=== PATIENT | male | born 1950 | race Caucasian/White ===

== ENCOUNTER 2020-12-09 05:13 | Inpatient (IN) | payer MEDICARE ==
[~2020-12-09] VITALS: Ht 182.9 cm; Wt 81.6 kg
[~2020-12-09 05:13] MED LIST: AMLO5TAB4 PO; AMOX1TAB58 PO; ASPI-630 PO; ATOR20TA58 PO; CHOL10004 PO; CYAN100031 PO; CYAN25002 SL; FOLI0.4T5 PO; LISI10TA16 PO; METF500T16 PO; METO-239 PO; MULT-245 PO; OLAN5TAB67 PO; PYRI50TA6 PO; SERT25TA PO
--- NOTE | 2020-12-09 05:55 | PHYS DOC ---
Past Medical History Past Medical History: CVA, High Cholesterol, Hypertension, Seizure Additional Past Medical Histor: MENTAL HEALTH ISSUES Past Surgical History: Other Additional Past Surgical Histo: UNKNOWN Smoking Status: Unknown if ever smoked Alcohol Use: None General Adult EDM: Chief Complaint: FATIGUE HPI: HPI: Patient is a 70 year old male who states he is on no prescription medications presents for evaluation of nausea vomiting diarrhea and generalized weakness. Patient states 1 day history of nausea vomiting and diarrhea. Earlier this morning patient fell to the ground but due to weakness he could not get himself up off the ground. Patient denies any head injury. Neighbors called 911 at 2 AM due to hearing someone yelling out calling for help. EMS states it took them approximately an hour and a half to locate the patient. On exam patient is alert without focal weakness. He denies any chest pain or shortness of breath. Patient is not covid 19 vacinated. Review of Systems: Review of Systems: Constitutional: Denies fever or chills. [] Eyes: Denies change in visual acuity. [] HENT: Denies nasal congestion or sore throat. [] Respiratory: Denies cough or shortness of breath. [] Cardiovascular: Denies chest pain or edema. [] GI: Denies abdominal pain, positive nausea, vomiting, and diarrhea. [] : Denies dysuria. [] Musculoskeletal: Denies back pain or joint pain. [] Integument: Denies rash. [] Neurologic: Denies headache, focal weakness or sensory changes. []positive generalized weakness Endocrine: Denies polyuria or polydipsia. [] Lymphatic: Denies swollen glands. [] Psychiatric: Denies depression or anxiety. [] Heart Score: C/O Chest Pain: N/A Risk Factors: Risk Factors: DM, Current or recent (<one month) smoker, HTN, HLP, family history of CAD, obesity. Risk Scores: Score 0 - 3: 2.5% MACE over next 6 weeks - Discharge Home Score 4 - 6: 20.3% MACE over next 6 weeks - Admit for Clinical Observation Score 7 - 10: 72.7% MACE over next 6 weeks - Early Invasive Strategies Current Medications: Current Medications Medications (Trade) Dose Ordered Sig/Keely Start Time Stop Time Status Last Admin Dose Admin Ondansetron HCl (Zofran) 4 mg 1X ONCE 12/09/20 06:00 12/09/20 06:01 UNV Sodium Chloride 1,000 ml @ 1,000 mls/hr 1X ONCE 12/09/20 06:00 12/09/20 06:59 UNV Allergies: Allergies: Allergies Coded Allergies Type Severity Reaction Last Updated Verified No Known Drug Allergies 08/16/20 No Physical Exam: PE: General: alert, no acute distress. Skin: warm, dry and intact, no erythema, no rash. HENT: bilateral external ears normal, oropharynx moist, nose normal. Head:: Normocephalic, atraumatic. Neck: Trachea midline. Eyes: EOMI, Normal conjunctiva, No drainage CARDIOVASCULAR: Regular rate and rhythm RESPIRATORY: No respiratory distress Back: Full range of motion. MUSCULOSKELETAL: Full range of motion of bilateral upper and lower extremities. GASTROINTESTINAL: Abdomen soft without rebound or guarding. NEUROLOGICAL: Alert . No neurological deficits observed Psychiatric: Cooperative. Normal judgment EKG: EKG: [] Performed at 0520 Rate 93 Normal sinus rhythm No ST elevation No ST depression No acute NM Radiology/Procedures: Radiology/Procedures: [] Course & Med Decision Making: Course & Med Decision Making Pertinent Labs and Imaging studies reviewed. (See chart for details) [] Dragon Disclaimer: Dragon Disclaimer: This electronic medical record was generated, in whole or in part, using a voice recognition dictation system. Departure Departure Impression: Primary Impression: Generalized weakness Additional Impression: Fall Disposition: ADMITTED INPATIENT Referrals: UNKNOWN PCP NAME (PCP) CHENTE DANIELSON DO Dec 09, 2020 05:55
[2020-12-09 05:59] LABS: CALCIUM 9.2 mg/dL (8.5-10.1); GFR 73.9; POTASSIUM 3.2 mmol/L (3.5-5.1)
[2020-12-09] MEDS ORDERED: IV NORMAL SALINE 1000ML BAG 1,000 ML IV ONE (06:00)
[2020-12-09] MEDS ORDERED: ONDANSETRON PF 4 MG/2 ML VIAL. IVP ONE (06:00)
[2020-12-09 06:04] LABS: ALBUMIN 3.7 g/dL (3.4-5.0); ALBUMIN/GLOBULIN RATIO 0.9 (1.0-1.7)
[2020-12-09 06:06] LABS: BASO # 0.1 x10^3/uL (0.0-0.2); BASO % 1 % (0-3); EOS % 0 % (0-3); HEMATOCRIT 43.4 % (39.0-53.0); HEMOGLOBIN 15.2 g/dL (13.0-17.5); LYMPH # 1.8 x10^3/uL (1.0-4.8); LYMPH % 16 % (24-48); MEAN CORPUSCULAR HEMOGLOBIN 30 pg (25-35); MEAN CORPUSCULAR HGB CONC 35 g/dL (31-37); MEAN CORPUSCULAR VOLUME 85 fL (79-100); MONO % 9 % (0-9); NEUT # 8.1 x10^3/uL (1.8-7.7); NEUT % 74 % (31-73); PLATELET COUNT 259 x10^3/uL (140-400); RED CELL DISTRIBUTION WIDTH 14.5 % (11.5-14.5)
[2020-12-09] MEDS ORDERED: ONDANSETRON PF 4 MG/2 ML VIAL. IVP PRN (06:15)
[2020-12-09 06:41] LABS: INFLUENZA A PATIENT NEGATIVE (NEGATIVE); INFLUENZA B PATIENT NEGATIVE (NEGATIVE)
--- NOTE | 2020-12-09 07:05 | RAD ---
EXAM: CHEST ONE VIEW. HISTORY: Weakness. COMPARISON: None. FINDINGS: A frontal view of the chest is obtained. There are no confluent infiltrates. There is no pneumothorax or pleural effusion. The heart is not en larged. IMPRESSION: 1. No confluent infiltrates. Electronically signed by: Bc Jordan MD (12/09/2020 7:03 AM) [facility]
[2020-12-09 11:00] VITALS: BP 144/80
--- NOTE | 2020-12-09 12:08 | EKG ---
[facility] [address] [place] [address] Test Date: 2020-12-09 Test Time: 05:20:19 Pat Name: TAWANDA CORRALES Department: Room: Gender: M Lead Radiation Therapist: : [id number] Requested By: CHENTE DANIELSON Order Number: [id number] Reading MD: Measurements Intervals [place] Rate: 93 P: 90 VT: 192 QRS: -52 QRSD: 84 T: 29 QT: 418 QTc: 523 Interpretive Statements SINUS RHYTHM ABNORMAL LEFT AXIS DEVIATION QRS(T) CONTOUR ABNORMALITY CONSISTENT WITH INFERIOR INFARCT PROBABLY OLD ABNORMAL ECG RI6.01 No previous ECG available for comparison
[2020-12-09] MEDS: IV NORMAL SALINE 1000ML BAG 1,000 ML IV SCH ×2 (12:23→20:05)
[2020-12-09] MEDS ORDERED: POTASSIUM CHLORIDE 20 MEQ TABLET.ER. PO ONE (12:30)
--- NOTE | 2020-12-09 13:12 | HP ---
ADMIT DATE: 12/09/2020 CHIEF COMPLAINT: Fatigue. HISTORY OF PRESENT ILLNESS: The patient is a pleasant 70-year-old male who was admitted back in October. Apparently, he was taking psilocybin mushrooms (magic mushrooms). He states he lives alone and that he misses his 15-year-old daughter who is with his ex-. He seems to be somewhat of a poor historian. In his record, he carries a diagnosis of mental health issues and previous strokes. He has been very weak for a couple of days now, had some associated nausea, vomiting and diarrhea. He fell to the ground, apparently came in by EMS. His neighbors called the ambulance at 2:00 in the morning as the patient was yelling out for help. I discussed the case with ER physician. We admitted the patient for further evaluation and treatment. PAST MEDICAL HISTORY: Stroke, hypertension, hyperlipidemia, mental health issues, probable drug abuse (he apparently was on mushrooms last time he came). ALLERGIES: None. FAMILY HISTORY: Diabetes. SOCIAL HISTORY: He states he is . He is a 15-year-old child with his who lives in [place]. He states she is rich and they took his money? 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 MEDICATIONS: Reviewed, please refer to the MRAD. REVIEW OF SYSTEMS: GENERAL: No history of weight change, weakness or fevers. SKIN: No bruising, hair changes or rashes. EYES: No blurred, double or loss of vision. NOSE AND THROAT: No history of nosebleeds, hoarseness or sore throat. HEART: No history of palpitations, chest pain or shortness of breath on exertion. LUNGS: Denies cough, hemoptysis, wheezing or shortness of breath. GASTROINTESTINAL: Denies changes in appetite, nausea, vomiting, diarrhea or constipation. GENITOURINARY: No history of frequency, urgency, hesitancy or nocturia. NEUROLOGIC: He complains of weakness. PSYCHIATRIC: No history of panic, anxiety or depression. ENDOCRINE: No history of heat or cold intolerance, polyuria or polydipsia. EXTREMITIES: Denies muscle weakness, joint pain, pain on walking or stiffness. PHYSICAL EXAMINATION: VITALS: Within normal limits and are stable. GENERAL: He is weak. HEENT: Normal cephalic atraumatic, external auditory canals are patent EYES: Extraocular muscles are intact, pupils are equally round and reactive to light and accommodation MUSCULOSKELETAL: Well developed, well nourished, good range of motion. ENDOCRINE: No thyromegaly was palpated. LYMPHATICS: No cervical chain or axillary nodes were noted. HEMATOPOIETIC: No bruising. NECK: Supple, no JVD, no thyromegaly was noted. LUNGS: Clear to auscultation in all lung leos without rhonchi or wheezing. HEART: RRR, S1, S2 present. Peripheral pulses intact, no obvious murmurs were noted. ABDOMEN: Soft, nontender. Positive bowel sounds no organomegaly, normal bowel sounds. EXTREMITIES: Without any cyanosis, clubbing, or edema. Pedal pulses intact, Homans sign is negative. NEUROLOGIC: He twitches and cries at times and is very weak. PSYCHIATRIC: He has odd affect. He is depressed and tearful at times. He shakes his shoulders and shrugs his shoulders at times. SKIN: No ulcerations or rashes, good skin turgor, no jaundice. VASCULAR: Good capillary refill, neurovascular bundle appears to be intact. LABORATORY DATA: Drug screen is pending. Alcohol level is negative. Potassium is low at 3.2. Hematology is normal. COVID testing is negative. Chest x-ray is negative. Troponin was 0.05. ASSESSMENT AND PLAN: Progressive mental status changes. I suspect he might be developing dementia? The patient has been admitted. I have consulted social media marketer for long-term care placement. We will check a drug screen, PT, OT, home meds. DVT prophylaxis. Full code. Replace his potassium. He does have an elevated troponin of 0.05. We will consult Cardiology for a second opinion. Jamee Peña. Prognosis is guarded. JOHNNY/ENMANUEL JIMENEZ: Sophia TID: [id number]
--- NOTE | 2020-12-09 13:16 | NUR ---
DARREN following. Discussed with RN, pt from home alone, room air, regular diet. Rapid COVID-19 negative. Pt discharged with [facility] last admission after declining SNF. DARREN will continue to follow. Addendum: 12/09/20 at 1551 by CHRISTIANE BANKS RN advised of PAT consult. DARREN notified PAT team.
[2020-12-09 15:00] VITALS: BP 163/82
[2020-12-09 18:14] LABS: BILIRUBIN,URINE NEGATIVE (NEG); CLARITY,URINE CLOUDY; COLOR,URINE YELLOW; NITRITE,URINE NEGATIVE (NEG); PROTEIN,URINE NEGATIVE (NEG-TRACE)
[2020-12-09 18:16] LABS: BACTERIA,URINE FEW /HPF (0-FEW); BARBITURATES NEG (NEG); BENZODIAZEPINES NEG (NEG); CANNABINOIDS POS (NEG); COCAINE NEG (NEG); METHADONE NEG (NEG); OPIATES NEG (NEG); PHENCYCLIDINE NEG (NEG); RBC,URINE 0 /HPF (0-2)
[2020-12-09 18:19] LABS: AMPHETAMINE/METHAMPHETAMINE NEG (NEG)
[2020-12-09 19:00] VITALS: BP 138/71
[2020-12-09 22:47] VITALS: BP 157/77
[2020-12-10 02:28] VITALS: BP 149/72
[2020-12-10 07:00] VITALS: BP 157/83
[2020-12-10 07:26] LABS: BASO # 0.1 x10^3/uL (0.0-0.2); BASO % 1 % (0-3); EOS % 0 % (0-3); HEMATOCRIT 36.6 % (39.0-53.0); HEMOGLOBIN 12.8 g/dL (13.0-17.5); LYMPH # 1.7 x10^3/uL (1.0-4.8); LYMPH % 26 % (24-48); MEAN CORPUSCULAR HEMOGLOBIN 30 pg (25-35); MEAN CORPUSCULAR HGB CONC 35 g/dL (31-37); MEAN CORPUSCULAR VOLUME 85 fL (79-100); MONO # 0.7 x10^3/uL (0.0-1.1); MONO % 10 % (0-9); NEUT # 4.1 x10^3/uL (1.8-7.7); NEUT % 62 % (31-73); PLATELET COUNT 199 x10^3/uL (140-400); RED BLOOD COUNT 4.33 x10^6/uL (4.30-5.70); RED CELL DISTRIBUTION WIDTH 14.5 % (11.5-14.5); WHITE BLOOD COUNT 6.5 x10^3/uL (4.0-11.0)
[2020-12-10 07:42] LABS: CALCIUM 8.2 mg/dL (8.5-10.1); CREATININE 0.7 mg/dL (0.7-1.3); GFR 111.5; MAGNESIUM 2.1 mg/dL (1.8-2.4); POTASSIUM 3.4 mmol/L (3.5-5.1)
[2020-12-10] MEDS: SERTRALINE 25 MG TABLET. PO SCH ×2 (10:37→21:20)
[2020-12-10] MEDS: MULTIVITAMIN with MINERAL TABLET. PO SCH (10:37)
[2020-12-10] MEDS: PYRIDOXINE 50 MG TABLET. PO SCH (10:37)
[2020-12-10] MEDS: CYANOCOBALAMIN (VITAMIN B-12) 1,000 MCG TABLET. PO SCH (10:37)
[2020-12-10] MEDS: CHOLECALCIFEROL (VITAMIN D3) 1,000 UNIT TABLET PO SCH (10:37)
[2020-12-10] MEDS: ASPIRIN CHEWABLE 81 MG TABLET. PO SCH (10:37)
[2020-12-10] MEDS: LISINOPRIL 10 MG TABLET PO SCH (10:38)
[2020-12-10] MEDS: FOLIC ACID 1 MG TABLET. PO SCH (10:38)
[2020-12-10 11:00] VITALS: BP 125/71
--- NOTE | 2020-12-10 11:02 | PDOC ---
[facility] PROGRESS NOTE Date of Service DOS: DATE: 12/10/20 TIME: 10:58 Chief Complaint Chief Complaint Nausea Vomiting Diarrhea Generalized weakness Stroke HTN HLD Probable drug abuse Mental health issues History of Present Illness History of Present Illness 12/10/2020: Pt seen and examined. Discussed with RN. Chart reviewed. Pt A&O, NAD. Vitals/I&O Vitals/I&O: Vital Signs Date Time Temp Pulse Resp B/P (MAP) Pulse Ox O2 Delivery O2 Flow Rate FiO2 12/10/20 10:38 74 157/83 12/10/20 07:00 98.3 16 96 Room Air 98.3 I & O 12/09/20 12/09/20 12/10/20 15:00 23:00 07:00 Intake Total 540 ml 780 ml 480 ml Output Total 300 ml 300 ml 400 ml Balance 240 ml 480 ml 80 ml Physical Exam General: Alert, No acute distress Lungs: Clear Labs Labs: Laboratory Tests Test 12/09/20 12:40 12/09/20 17:55 12/10/20 00:30 12/10/20 06:55 Troponin I Quantitative 0.045 ng/mL (0.000-0.055) 0.048 ng/mL (0.000-0.055) 0.048 ng/mL (0.000-0.055) Urine Collection Type Unknown Urine Color Yellow Urine Clarity Cloudy Urine pH 7.0 (<5.0-8.0) Urine Specific Howe 1.020 (1.000-1.030) Urine Protein Negative mg/dL (NEG-TRACE) Urine Glucose (UA) Negative mg/dL (NEG) Urine Ketones (Stick) Negative mg/dL (NEG) Urine Blood Negative (NEG) Urine Nitrite Negative (NEG) Urine Bilirubin Negative (NEG) Urine Urobilinogen Dipstick 1.0 mg/dL (0.2 mg/dL) Urine Leukocyte Esterase Negative (NEG) Urine RBC 0 /HPF (0-2) Urine WBC 1-4 /HPF (0-4) Urine Squamous Epithelial Cells Occ /LPF Urine Bacteria Few /HPF (0-FEW) Urine Mucus Slight /LPF Urine Opiates Screen Neg (NEG) Urine Methadone Screen Neg (NEG) Urine Barbiturates Neg (NEG) Urine Phencyclidine Screen Neg (NEG) Urine Amphetamine/Methamphetamine Neg (NEG) Urine Benzodiazepines Screen Neg (NEG) Urine Cocaine Screen Neg (NEG) Urine Cannabinoids Screen Pos (NEG) Urine Ethyl Alcohol Neg (NEG) White Blood Count 6.5 x10^3/uL (4.0-11.0) Red Blood Count 4.33 x10^6/uL (4.30-5.70) Hemoglobin 12.8 g/dL (13.0-17.5) Hematocrit 36.6 % (39.0-53.0) Mean Corpuscular Volume 85 fL (79-100) Mean Corpuscular Hemoglobin 30 pg (25-35) Mean Corpuscular Hemoglobin Concent 35 g/dL (31-37) Red Cell Distribution Width 14.5 % (11.5-14.5) Platelet Count 199 x10^3/uL (140-400) Neutrophils (%) (Auto) 62 % (31-73) Lymphocytes (%) (Auto) 26 % (24-48) Monocytes (%) (Auto) 10 % (0-9) Eosinophils (%) (Auto) 0 % (0-3) Basophils (%) (Auto) 1 % (0-3) Neutrophils # (Auto) 4.1 x10^3/uL (1.8-7.7) Lymphocytes # (Auto) 1.7 x10^3/uL (1.0-4.8) Monocytes # (Auto) 0.7 x10^3/uL (0.0-1.1) Eosinophils # (Auto) 0.0 x10^3/uL (0.0-0.7) Basophils # (Auto) 0.1 x10^3/uL (0.0-0.2) Sodium Level 141 mmol/L (136-145) Potassium Level 3.4 mmol/L (3.5-5.1) Chloride Level 106 mmol/L (98-107) Carbon Dioxide Level 29 mmol/L (21-32) Anion Gap 6 (6-14) Blood Urea Nitrogen 12 mg/dL (8-26) Creatinine 0.7 mg/dL (0.7-1.3) Estimated GFR (Cockcroft-Gault) 111.5 Glucose Level 116 mg/dL (70-99) Calcium Level 8.2 mg/dL (8.5-10.1) Magnesium Level 2.1 mg/dL (1.8-2.4) Assessment and Plan Assessmemt and Plan Nausea Vomiting Diarrhea Generalized weakness Stroke HTN HLD Probable drug abuse Mental health issues Plan: Cardiac monitoring IV fluids Await home health care social worker input for possible SNU placement PT OT DVT prophylaxis Trend labs Full code Discharge disposition pending Comment Review of Relevant I have reviewed the following items russell (where applicable) has been applied. Medications: Current Medications Medications (Trade) Dose Ordered Sig/Keely Route PRN Reason Start Time Stop Time Status Last Admin Dose Admin Potassium Chloride (Klor-Con) 40 meq 1X ONCE PO 12/09/20 12:30 12/09/20 12:33 DC 12/09/20 15:07 Aspirin (Aspirin Chewable) 81 mg DAILY PO 12/10/20 09:00 12/10/20 10:37 Vitamin D (Vitamin D3) 1,000 unit DAILY PO 12/10/20 09:00 12/10/20 10:37 Lisinopril (Prinivil) 10 mg DAILY PO 12/10/20 09:00 12/10/20 10:38 Pyridoxine HCl (Vitamin B-6) 25 mg DAILY PO 12/10/20 09:00 12/10/20 10:37 Sertraline HCl (Zoloft) 25 mg BID PO 12/10/20 09:00 12/10/20 10:37 Cyanocobalamin (Vitamin B-12) 1,000 mcg DAILY PO 12/10/20 09:00 12/10/20 10:37 Folic Acid (Folic Acid) 0.5 mg DAILY PO 12/10/20 09:00 12/10/20 10:38 Multivitamins (Thera M Plus) 1 tab DAILY PO 12/10/20 09:00 12/10/20 10:37 Amlodipine Besylate (Norvasc) 5 mg DAILY PO 12/10/20 09:00 12/10/20 10:38 Justifications for Admission Other Justification KHANH BONILLA III DO Dec 10, 2020 11:02
[2020-12-10 15:00] VITALS: BP 130/68
--- NOTE | 2020-12-10 15:03 | PDOC2 ---
CONSULT Date of Consult Date of Consult DATE: 12/10/20 TIME: 14:58 Reason for Consult Reason for Consult: Minimally elevated troponin and weakness Referring Physician Referring Physician: Dr. Abreu Identification/Chief Complaint Chief Complaint Weakness, nausea and vomiting Source Source: Chart review, Patient History of Present Illness Reason for Visit: The patient is a 70-year-old male who reported episodes of increasing weakness nausea and vomiting. Apparently he was calling for help the previous evening and neighbors called paramedics. He was brought to the emergency room and initial lab testing included troponin of 0.05 and a potassium of 3.2. EKG showed no acute ischemic changes. A chest x-ray showed no acute changes. He has reported history of a CVA, hypertension, hyperlipidemia and a possible seizure disorder. Sequential troponins have been 0.045, 0.048 and 0.048 again. The patient appears relatively comfortable today. He denies chest discomfort. His nausea has improved. Past Medical History Cardiovascular: HTN, Hyperlipidemia CENTRAL NERVOUS SYSTEM: CVA, Dementia, Seizure Heme/Onc: No pertinent hx Psych: Other Musculoskeletal: Osteoarthritis Endocrine: Diabetes Past Surgical History Past Surgical History: No pertinent history Family History Family History: Family History Unknown Social History ALCOHOL: rare Drugs: Marijuana Lives: Retirement Current Medications Current Medications Current Medications Ondansetron HCl (Zofran) 4 mg 1X ONCE IVP Last administered on 12/09/20at 06:00; Start 12/09/20 at 06:00; Stop 12/09/20 at 06:01; Status DC Sodium Chloride 1,000 ml @ 1,000 mls/hr 1X ONCE IV Last administered on 12/09/20at 06:00; Start 12/09/20 at 06:00; Stop 12/09/20 at 06:59; Status DC Ondansetron HCl (Zofran) 4 mg PRN Q8HRS PRN IVP NAUSEA/VOMITING 1st choice Last administered on 12/09/20at 20:04; Start 12/09/20 at 06:15; Stop 12/10/20 at 06:14; Status DC Sodium Chloride 1,000 ml @ 75 mls/hr [id number] IV Last administered on 12/09/20at 20:05; Start 12/09/20 at 06:15; Stop 12/10/20 at 06:14; Status DC Potassium Chloride (Klor-Con) 40 meq 1X ONCE PO Last administered on 12/09/20 15:07; Start 12/09/20 at 12:30; Stop 12/09/20 at 12:33; Status DC Aspirin (Aspirin Chewable) 81 mg DAILY PO Last administered on 12/10/20 10:37; Start 12/10/20 at 09:00 Atorvastatin Calcium (Lipitor) 20 mg QHS PO ; Start 12/10/20 at 21:00 Vitamin D (Vitamin D3) 1,000 unit DAILY PO Last administered on 12/10/20 10:37; Start 12/10/20 at 09:00 Lisinopril (Prinivil) 10 mg DAILY PO Last administered on 12/10/20 10:38; Start 12/10/20 at 09:00 Pyridoxine HCl (Vitamin B-6) 25 mg DAILY PO Last administered on 12/10/20at 10:37; Start 12/10/20 at 09:00 Sertraline HCl (Zoloft) 25 mg BID PO Last administered on 12/10/20 10:37; Start 12/10/20 at 09:00 Cyanocobalamin (Vitamin B-12) 1,000 mcg DAILY PO Last administered on 12/10/20 10:37; Start 12/10/20 at 09:00 Folic Acid (Folic Acid) 0.5 mg DAILY PO Last administered on 12/10/20 10:38; Start 12/10/20 at 09:00 Multivitamins (Thera M Plus) 1 tab DAILY PO Last administered on 12/10/20 10:37; Start 12/10/20 at 09:00 Amlodipine Besylate (Norvasc) 5 mg DAILY PO Last administered on 12/10/20 10:38; Start 12/10/20 at 09:00 Active Scripts Active Metformin Hcl 500 Mg Tablet 500 Mg PO BIDWMEALS 30 Days Metoprolol Succinate ( Xl ) (Metoprolol Succinate) 25 Mg Tab.er.24h 25 Mg PO DAILY 30 Days Pyridoxine Hcl (Pyridoxine Hcl) 25 Mg Tablet 1 Tab PO DAILY 30 Days B-12 (Cyanocobalamin (Vitamin B-12)) 2,500 Mcg Tab.subl 1 Tab SL DAILY 30 Days Folic Acid 0.4 Mg Tablet 0.4 Mg PO DAILY 30 Days Atorvastatin Calcium 20 Mg Tablet 20 Mg PO QHS 30 Days Reported Multi Vitamin Daily (Multivitamin) 1 Each Tablet 1 Tab PO DAILY 30 Days B-12 (Cyanocobalamin (Vitamin B-12)) 1,000 Mcg Tablet.er 1 Tab PO DAILY 30 Days Vitamin D3 (Vitamin D) 25 Mcg Tablet 25 Mcg PO DAILY 1,000 UNITS = 25 MCG Zoloft (Sertraline Hcl) 25 Mg Tablet 1 Tab PO BID Olanzapine 5 Mg Tablet 5 Mg PO DAILY Aspirin 81 Mg Tab.chew 81 Mg PO DAILY Norvasc (Amlodipine Besylate) 5 Mg Tablet 5 Mg PO DAILY Lisinopril 10 Mg Tablet 10 Mg PO DAILY Allergies Allergies: Coded Allergies: No Known Drug Allergies (Unverified , 08/16/20) ROS General: YES: Fatigue, Malaise Gastrointestinal: Yes Nausea, Yes Vomiting Physical Exam General: No acute distress HEENT: Atraumatic Lungs: Other (Slightly decreased breath sounds) Heart: Regular rate Abdomen: Normal bowel sounds Vitals VITALS Vital Signs Date Time Temp Pulse Resp B/P (MAP) Pulse Ox O2 Delivery O2 Flow Rate FiO2 12/10/20 11:00 98.1 73 18 125/71 (89) 94 Room Air 98.1 Labs Labs Laboratory Tests Test 12/09/20 05:30 12/09/20 06:05 12/09/20 12:40 12/09/20 17:55 White Blood Count 11.0 x10^3/uL (4.0-11.0) Red Blood Count 5.10 x10^6/uL (4.30-5.70) Hemoglobin 15.2 g/dL (13.0-17.5) Hematocrit 43.4 % (39.0-53.0) Mean Corpuscular Volume 85 fL (79-100) Mean Corpuscular Hemoglobin 30 pg (25-35) Mean Corpuscular Hemoglobin Concent 35 g/dL (31-37) Red Cell Distribution Width 14.5 % (11.5-14.5) Platelet Count 259 x10^3/uL (140-400) Neutrophils (%) (Auto) 74 % (31-73) Lymphocytes (%) (Auto) 16 % (24-48) Monocytes (%) (Auto) 9 % (0-9) Eosinophils (%) (Auto) 0 % (0-3) Basophils (%) (Auto) 1 % (0-3) Neutrophils # (Auto) 8.1 x10^3/uL (1.8-7.7) Lymphocytes # (Auto) 1.8 x10^3/uL (1.0-4.8) Monocytes # (Auto) 1.0 x10^3/uL (0.0-1.1) Eosinophils # (Auto) 0.0 x10^3/uL (0.0-0.7) Basophils # (Auto) 0.1 x10^3/uL (0.0-0.2) Sodium Level 142 mmol/L (136-145) Potassium Level 3.2 mmol/L (3.5-5.1) Chloride Level 102 mmol/L (98-107) Carbon Dioxide Level 30 mmol/L (21-32) Anion Gap 10 (6-14) Blood Urea Nitrogen 16 mg/dL (8-26) Creatinine 1.0 mg/dL (0.7-1.3) Estimated GFR (Cockcroft-Gault) 73.9 BUN/Creatinine Ratio 16 (6-20) Glucose Level 140 mg/dL (70-99) Calcium Level 9.2 mg/dL (8.5-10.1) Total Bilirubin 1.0 mg/dL (0.2-1.0) Aspartate Amino Transf (AST/SGOT) 19 U/L (15-37) Alanine Aminotransferase (ALT/SGPT) 20 U/L (16-63) Alkaline Phosphatase 81 U/L (46-116) Creatine Kinase 179 U/L (39-308) Troponin I Quantitative 0.050 ng/mL (0.000-0.055) 0.045 ng/mL (0.000-0.055) Total Protein 8.0 g/dL (6.4-8.2) Albumin 3.7 g/dL (3.4-5.0) Albumin/Globulin Ratio 0.9 (1.0-1.7) Ethyl Alcohol Level < 10 mg/dL (0-10) Influenza Type A Antigen Negative (NEGATIVE) Influenza Type B Antigen Negative (NEGATIVE) SARS-CoV-2 RNA (AAMIR) Negative (Negative) SARS-CoV-2 Antigen (Rapid) Negative (NEGATIVE) Urine Collection Type Unknown Urine Color Yellow Urine Clarity Cloudy Urine pH 7.0 (<5.0-8.0) Urine Specific [place] 1.020 (1.000-1.030) Urine Protein Negative mg/dL (NEG-TRACE) Urine Glucose (UA) Negative mg/dL (NEG) Urine Ketones (Stick) Negative mg/dL (NEG) Urine Blood Negative (NEG) Urine Nitrite Negative (NEG) Urine Bilirubin Negative (NEG) Urine Urobilinogen Dipstick 1.0 mg/dL (0.2 mg/dL) Urine Leukocyte Esterase Negative (NEG) Urine RBC 0 /HPF (0-2) Urine WBC 1-4 /HPF (0-4) Urine Squamous Epithelial Cells Occ /LPF Urine Bacteria Few /HPF (0-FEW) Urine Mucus Slight /LPF Urine Opiates Screen Neg (NEG) Urine Methadone Screen Neg (NEG) Urine Barbiturates Neg (NEG) Urine Phencyclidine Screen Neg (NEG) Urine Amphetamine/Methamphetamine Neg (NEG) Urine Benzodiazepines Screen Neg (NEG) Urine Cocaine Screen Neg (NEG) Urine Cannabinoids Screen Pos (NEG) Urine Ethyl Alcohol Neg (NEG) Test 12/10/20 00:30 12/10/20 06:55 Troponin I Quantitative 0.048 ng/mL (0.000-0.055) 0.048 ng/mL (0.000-0.055) White Blood Count 6.5 x10^3/uL (4.0-11.0) Red Blood Count 4.33 x10^6/uL (4.30-5.70) Hemoglobin 12.8 g/dL (13.0-17.5) Hematocrit 36.6 % (39.0-53.0) Mean Corpuscular Volume 85 fL (79-100) Mean Corpuscular Hemoglobin 30 pg (25-35) Mean Corpuscular Hemoglobin Concent 35 g/dL (31-37) Red Cell Distribution Width 14.5 % (11.5-14.5) Platelet Count 199 x10^3/uL (140-400) Neutrophils (%) (Auto) 62 % (31-73) Lymphocytes (%) (Auto) 26 % (24-48) Monocytes (%) (Auto) 10 % (0-9) Eosinophils (%) (Auto) 0 % (0-3) Basophils (%) (Auto) 1 % (0-3) Neutrophils # (Auto) 4.1 x10^3/uL (1.8-7.7) Lymphocytes # (Auto) 1.7 x10^3/uL (1.0-4.8) Monocytes # (Auto) 0.7 x10^3/uL (0.0-1.1) Eosinophils # (Auto) 0.0 x10^3/uL (0.0-0.7) Basophils # (Auto) 0.1 x10^3/uL (0.0-0.2) Sodium Level 141 mmol/L (136-145) Potassium Level 3.4 mmol/L (3.5-5.1) Chloride Level 106 mmol/L (98-107) Carbon Dioxide Level 29 mmol/L (21-32) Anion Gap 6 (6-14) Blood Urea Nitrogen 12 mg/dL (8-26) Creatinine 0.7 mg/dL (0.7-1.3) Estimated GFR (Cockcroft-Gault) 111.5 Glucose Level 116 mg/dL (70-99) Calcium Level 8.2 mg/dL (8.5-10.1) Magnesium Level 2.1 mg/dL (1.8-2.4) Laboratory Tests Test 12/09/20 17:55 12/10/20 00:30 12/10/20 06:55 Urine Collection Type Unknown Urine Color Yellow Urine Clarity Cloudy Urine pH 7.0 (<5.0-8.0) Urine Specific [place] 1.020 (1.000-1.030) Urine Protein Negative mg/dL (NEG-TRACE) Urine Glucose (UA) Negative mg/dL (NEG) Urine Ketones (Stick) Negative mg/dL (NEG) Urine Blood Negative (NEG) Urine Nitrite Negative (NEG) Urine Bilirubin Negative (NEG) Urine Urobilinogen Dipstick 1.0 mg/dL (0.2 mg/dL) Urine Leukocyte Esterase Negative (NEG) Urine RBC 0 /HPF (0-2) Urine WBC 1-4 /HPF (0-4) Urine Squamous Epithelial Cells Occ /LPF Urine Bacteria Few /HPF (0-FEW) Urine Mucus Slight /LPF Urine Opiates Screen Neg (NEG) Urine Methadone Screen Neg (NEG) Urine Barbiturates Neg (NEG) Urine Phencyclidine Screen Neg (NEG) Urine Amphetamine/Methamphetamine Neg (NEG) Urine Benzodiazepines Screen Neg (NEG) Urine Cocaine Screen Neg (NEG) Urine Cannabinoids Screen Pos (NEG) Urine Ethyl Alcohol Neg (NEG) Troponin I Quantitative 0.048 ng/mL (0.000-0.055) 0.048 ng/mL (0.000-0.055) White Blood Count 6.5 x10^3/uL (4.0-11.0) Red Blood Count 4.33 x10^6/uL (4.30-5.70) Hemoglobin 12.8 g/dL (13.0-17.5) Hematocrit 36.6 % (39.0-53.0) Mean Corpuscular Volume 85 fL (79-100) Mean Corpuscular Hemoglobin 30 pg (25-35) Mean Corpuscular Hemoglobin Concent 35 g/dL (31-37) Red Cell Distribution Width 14.5 % (11.5-14.5) Platelet Count 199 x10^3/uL (140-400) Neutrophils (%) (Auto) 62 % (31-73) Lymphocytes (%) (Auto) 26 % (24-48) Monocytes (%) (Auto) 10 % (0-9) Eosinophils (%) (Auto) 0 % (0-3) Basophils (%) (Auto) 1 % (0-3) Neutrophils # (Auto) 4.1 x10^3/uL (1.8-7.7) Lymphocytes # (Auto) 1.7 x10^3/uL (1.0-4.8) Monocytes # (Auto) 0.7 x10^3/uL (0.0-1.1) Eosinophils # (Auto) 0.0 x10^3/uL (0.0-0.7) Basophils # (Auto) 0.1 x10^3/uL (0.0-0.2) Sodium Level 141 mmol/L (136-145) Potassium Level 3.4 mmol/L (3.5-5.1) Chloride Level 106 mmol/L (98-107) Carbon Dioxide Level 29 mmol/L (21-32) Anion Gap 6 (6-14) Blood Urea Nitrogen 12 mg/dL (8-26) Creatinine 0.7 mg/dL (0.7-1.3) Estimated GFR (Cockcroft-Gault) 111.5 Glucose Level 116 mg/dL (70-99) Calcium Level 8.2 mg/dL (8.5-10.1) Magnesium Level 2.1 mg/dL (1.8-2.4) Images Images Checks x-ray shows no acute cardiopulmonary changes. Assessment/Plan Assessment/Plan 1. Nausea and vomiting. Patient symptoms have improved with treatment. Potassium level is increased from 3.2-3.4. We will continue present treatments and monitoring. 2. Minimally elevated troponin at 0.045, 0.048 and 0.048. No acute ischemic EKG changes. No acute changes on chest x-ray. No chest pain. We will continue to monitor. 3. History of a possible CVA and seizure disorder. We will continue to monitor the patient. 4. Hypertension. Continuing present treatment. 5. Hyperlipidemia. Monitoring lab. MARCELINO SALAS MD Dec 10, 2020 15:03
[2020-12-10 19:50] VITALS: BP 145/69
[2020-12-10] MEDS: ATORVASTATIN CALCIUM 20 MG TABLET PO SCH (21:20)
[2020-12-10] MEDS: ONDANSETRON ODT 4 MG TAB.RAPDIS. PO PRN (21:20)
[2020-12-10 23:31] VITALS: BP 132/60
[2020-12-11 03:50] VITALS: BP 137/69
[2020-12-11 07:00] VITALS: BP 149/74
[2020-12-11 07:37] LABS: BASO # 0.1 x10^3/uL (0.0-0.2); BASO % 1 % (0-3); EOS % 0 % (0-3); HEMATOCRIT 37.6 % (39.0-53.0); HEMOGLOBIN 13.3 g/dL (13.0-17.5); LYMPH # 1.6 x10^3/uL (1.0-4.8); LYMPH % 24 % (24-48); MEAN CORPUSCULAR HEMOGLOBIN 30 pg (25-35); MEAN CORPUSCULAR HGB CONC 35 g/dL (31-37); MEAN CORPUSCULAR VOLUME 85 fL (79-100); MONO # 0.6 x10^3/uL (0.0-1.1); MONO % 9 % (0-9); NEUT # 4.2 x10^3/uL (1.8-7.7); NEUT % 66 % (31-73); PLATELET COUNT 209 x10^3/uL (140-400); RED BLOOD COUNT 4.43 x10^6/uL (4.30-5.70); RED CELL DISTRIBUTION WIDTH 14.5 % (11.5-14.5); WHITE BLOOD COUNT 6.4 x10^3/uL (4.0-11.0)
[2020-12-11] MEDS: ONDANSETRON ODT 4 MG TAB.RAPDIS. PO PRN ×2 (08:02→20:04)
[2020-12-11 08:21] LABS: CALCIUM 8.5 mg/dL (8.5-10.1); CREATININE 0.7 mg/dL (0.7-1.3); GFR 111.5; POTASSIUM 3.4 mmol/L (3.5-5.1)
[2020-12-11 08:22] LABS: CHOLESTEROL/HDL RATIO 5.8
[2020-12-11] MEDS: FOLIC ACID 1 MG TABLET. PO SCH (08:57)
[2020-12-11] MEDS: MULTIVITAMIN with MINERAL TABLET. PO SCH (08:57)
[2020-12-11] MEDS: CHOLECALCIFEROL (VITAMIN D3) 1,000 UNIT TABLET PO SCH (08:58)
[2020-12-11] MEDS: SERTRALINE 25 MG TABLET. PO SCH ×2 (08:58→20:04)
[2020-12-11] MEDS: ASPIRIN CHEWABLE 81 MG TABLET. PO SCH (08:58)
[2020-12-11] MEDS: LISINOPRIL 10 MG TABLET PO SCH (08:58)
[2020-12-11] MEDS: CYANOCOBALAMIN (VITAMIN B-12) 1,000 MCG TABLET. PO SCH (08:59)
[2020-12-11] MEDS: PYRIDOXINE 50 MG TABLET. PO SCH (09:00)
[2020-12-11 11:00] VITALS: BP 136/69
[2020-12-11] MEDS: LEVOTHYROXINE 25 MCG TABLET. PO SCH (11:18)
--- NOTE | 2020-12-11 12:55 | PDOC ---
PROGRESS NOTES Date of Service DATE: 12/11/20 TIME: 12:52 Subjective Subjective Patient seen and examined Objective Objective Vital Signs Date Time Temp Pulse Resp B/P (MAP) Pulse Ox O2 Delivery O2 Flow Rate FiO2 12/11/20 08:59 57 149/74 12/11/20 07:00 98.2 20 94 Room Air 98.2 Intake and Output 12/11/20 07:00 Intake Total 780 ml Output Total 1550 ml Balance -770 ml Intake Oral 780 ml Output Urine Total 1550 ml # Bowel Movements 1 Physical Exam Abdomen: Normal bowel sounds Heart: Regular rate General: No acute distress Lungs: Clear to auscultation Assessment Assessment Problems Medical Problems: (1) Fall Status: Acute (2) Generalized weakness Status: Acute 1. Nausea and vomiting. The patient's symptoms have resolved. Potassium is still low at 3.4. Replacing. 2. Minimally elevated troponin at 0.045, 0.048 and 0.048. No acute ischemic EKG changes. No acute changes on chest x-ray. No chest pain. We will continue to monitor. Outpatient follow-up and work-up. 3. History of a possible CVA and seizure disorder. Improved today. Lab testing is significant for a TSH of 7.525. Continue as per the primary service. The patient is on Synthroid. 4. Hypertension. Continuing present treatment. 5. Hyperlipidemia. Continue statin. Comment Review of Relevant I have reviewed the following items russell (where applicable) has been applied. Labs Laboratory Tests Test 12/09/20 17:55 12/10/20 00:30 12/10/20 06:55 12/11/20 07:10 Urine Collection Type Unknown Urine Color Yellow Urine Clarity Cloudy Urine pH 7.0 (<5.0-8.0) Urine Specific [place] 1.020 (1.000-1.030) Urine Protein Negative mg/dL (NEG-TRACE) Urine Glucose (UA) Negative mg/dL (NEG) Urine Ketones (Stick) Negative mg/dL (NEG) Urine Blood Negative (NEG) Urine Nitrite Negative (NEG) Urine Bilirubin Negative (NEG) Urine Urobilinogen Dipstick 1.0 mg/dL (0.2 mg/dL) Urine Leukocyte Esterase Negative (NEG) Urine RBC 0 /HPF (0-2) Urine WBC 1-4 /HPF (0-4) Urine Squamous Epithelial Cells Occ /LPF Urine Bacteria Few /HPF (0-FEW) Urine Mucus Slight /LPF Urine Opiates Screen Neg (NEG) Urine Methadone Screen Neg (NEG) Urine Barbiturates Neg (NEG) Urine Phencyclidine Screen Neg (NEG) Urine Amphetamine/Methamphetamine Neg (NEG) Urine Benzodiazepines Screen Neg (NEG) Urine Cocaine Screen Neg (NEG) Urine Cannabinoids Screen Pos (NEG) Urine Ethyl Alcohol Neg (NEG) Troponin I Quantitative 0.048 ng/mL (0.000-0.055) 0.048 ng/mL (0.000-0.055) White Blood Count 6.5 x10^3/uL (4.0-11.0) 6.4 x10^3/uL (4.0-11.0) Red Blood Count 4.33 x10^6/uL (4.30-5.70) 4.43 x10^6/uL (4.30-5.70) Hemoglobin 12.8 g/dL (13.0-17.5) 13.3 g/dL (13.0-17.5) Hematocrit 36.6 % (39.0-53.0) 37.6 % (39.0-53.0) Mean Corpuscular Volume 85 fL (79-100) 85 fL (79-100) Mean Corpuscular Hemoglobin 30 pg (25-35) 30 pg (25-35) Mean Corpuscular Hemoglobin Concent 35 g/dL (31-37) 35 g/dL (31-37) Red Cell Distribution Width 14.5 % (11.5-14.5) 14.5 % (11.5-14.5) Platelet Count 199 x10^3/uL (140-400) 209 x10^3/uL (140-400) Neutrophils (%) (Auto) 62 % (31-73) 66 % (31-73) Lymphocytes (%) (Auto) 26 % (24-48) 24 % (24-48) Monocytes (%) (Auto) 10 % (0-9) 9 % (0-9) Eosinophils (%) (Auto) 0 % (0-3) 0 % (0-3) Basophils (%) (Auto) 1 % (0-3) 1 % (0-3) Neutrophils # (Auto) 4.1 x10^3/uL (1.8-7.7) 4.2 x10^3/uL (1.8-7.7) Lymphocytes # (Auto) 1.7 x10^3/uL (1.0-4.8) 1.6 x10^3/uL (1.0-4.8) Monocytes # (Auto) 0.7 x10^3/uL (0.0-1.1) 0.6 x10^3/uL (0.0-1.1) Eosinophils # (Auto) 0.0 x10^3/uL (0.0-0.7) 0.0 x10^3/uL (0.0-0.7) Basophils # (Auto) 0.1 x10^3/uL (0.0-0.2) 0.1 x10^3/uL (0.0-0.2) Sodium Level 141 mmol/L (136-145) 140 mmol/L (136-145) Potassium Level 3.4 mmol/L (3.5-5.1) 3.4 mmol/L (3.5-5.1) Chloride Level 106 mmol/L (98-107) 105 mmol/L (98-107) Carbon Dioxide Level 29 mmol/L (21-32) 28 mmol/L (21-32) Anion Gap 6 (6-14) 7 (6-14) Blood Urea Nitrogen 12 mg/dL (8-26) 7 mg/dL (8-26) Creatinine 0.7 mg/dL (0.7-1.3) 0.7 mg/dL (0.7-1.3) Estimated GFR (Cockcroft-Gault) 111.5 111.5 Glucose Level 116 mg/dL (70-99) 123 mg/dL (70-99) Calcium Level 8.2 mg/dL (8.5-10.1) 8.5 mg/dL (8.5-10.1) Magnesium Level 2.1 mg/dL (1.8-2.4) Triglycerides Level 106 mg/dL (0-150) Cholesterol Level 179 mg/dL (0-200) LDL Cholesterol, Calculated 127 mg/dL (0-100) VLDL Cholesterol, Calculated 21 mg/dL (0-40) Non-HDL Cholesterol Calculated 148 mg/dL (0-129) HDL Cholesterol 31 mg/dL (40-60) Cholesterol/HDL Ratio 5.8 Thyroid Stimulating Hormone (TSH) 7.525 uIU/mL (0.358-3.74) Laboratory Tests Test 12/11/20 07:10 White Blood Count 6.4 x10^3/uL (4.0-11.0) Red Blood Count 4.43 x10^6/uL (4.30-5.70) Hemoglobin 13.3 g/dL (13.0-17.5) Hematocrit 37.6 % (39.0-53.0) Mean Corpuscular Volume 85 fL (79-100) Mean Corpuscular Hemoglobin 30 pg (25-35) Mean Corpuscular Hemoglobin Concent 35 g/dL (31-37) Red Cell Distribution Width 14.5 % (11.5-14.5) Platelet Count 209 x10^3/uL (140-400) Neutrophils (%) (Auto) 66 % (31-73) Lymphocytes (%) (Auto) 24 % (24-48) Monocytes (%) (Auto) 9 % (0-9) Eosinophils (%) (Auto) 0 % (0-3) Basophils (%) (Auto) 1 % (0-3) Neutrophils # (Auto) 4.2 x10^3/uL (1.8-7.7) Lymphocytes # (Auto) 1.6 x10^3/uL (1.0-4.8) Monocytes # (Auto) 0.6 x10^3/uL (0.0-1.1) Eosinophils # (Auto) 0.0 x10^3/uL (0.0-0.7) Basophils # (Auto) 0.1 x10^3/uL (0.0-0.2) Sodium Level 140 mmol/L (136-145) Potassium Level 3.4 mmol/L (3.5-5.1) Chloride Level 105 mmol/L (98-107) Carbon Dioxide Level 28 mmol/L (21-32) Anion Gap 7 (6-14) Blood Urea Nitrogen 7 mg/dL (8-26) Creatinine 0.7 mg/dL (0.7-1.3) Estimated GFR (Cockcroft-Gault) 111.5 Glucose Level 123 mg/dL (70-99) Calcium Level 8.5 mg/dL (8.5-10.1) Triglycerides Level 106 mg/dL (0-150) Cholesterol Level 179 mg/dL (0-200) LDL Cholesterol, Calculated 127 mg/dL (0-100) VLDL Cholesterol, Calculated 21 mg/dL (0-40) Non-HDL Cholesterol Calculated 148 mg/dL (0-129) HDL Cholesterol 31 mg/dL (40-60) Cholesterol/HDL Ratio 5.8 Thyroid Stimulating Hormone (TSH) 7.525 uIU/mL (0.358-3.74) Medications Current Medications Ondansetron HCl (Zofran) 4 mg 1X ONCE IVP Last administered on 12/09/20at 06:00; Start 12/09/20 at 06:00; Stop 12/09/20 at 06:01; Status DC Sodium Chloride 1,000 ml @ 1,000 mls/hr 1X ONCE IV Last administered on 12/09/20at 06:00; Start 12/09/20 at 06:00; Stop 12/09/20 at 06:59; Status DC Ondansetron HCl (Zofran) 4 mg PRN Q8HRS PRN IVP NAUSEA/VOMITING 1st choice Last administered on 12/09/20at 20:04; Start 12/09/20 at 06:15; Stop 12/10/20 at 06:14; Status DC Sodium Chloride 1,000 ml @ 75 mls/hr [id number] IV Last administered on 12/09/20at 20:05; Start 12/09/20 at 06:15; Stop 12/10/20 at 06:14; Status DC Potassium Chloride (Klor-Con) 40 meq 1X ONCE PO Last administered on 12/09/20at 15:07; Start 12/09/20 at 12:30; Stop 12/09/20 at 12:33; Status DC Aspirin (Aspirin Chewable) 81 mg DAILY PO Last administered on 12/11/20at 08:58; Start 12/10/20 at 09:00 Atorvastatin Calcium (Lipitor) 20 mg QHS PO Last administered on 12/10/20at 21:20; Start 12/10/20 at 21:00 Vitamin D (Vitamin D3) 1,000 unit DAILY PO Last administered on 12/11/20at 08:58; Start 12/10/20 at 09:00 Lisinopril (Prinivil) 10 mg DAILY PO Last administered on 12/11/20 08:58; Start 12/10/20 at 09:00 Pyridoxine HCl (Vitamin B-6) 25 mg DAILY PO Last administered on 12/11/20 09:00; Start 12/10/20 at 09:00 Sertraline HCl (Zoloft) 25 mg BID PO Last administered on 12/11/20 08:58; Start 12/10/20 at 09:00 Cyanocobalamin (Vitamin B-12) 1,000 mcg DAILY PO Last administered on 12/11/20 08:59; Start 12/10/20 at 09:00 Folic Acid (Folic Acid) 0.5 mg DAILY PO Last administered on 12/11/20 08:57; Start 12/10/20 at 09:00 Multivitamins (Thera M Plus) 1 tab DAILY PO Last administered on 12/11/20 08:57; Start 12/10/20 at 09:00 Amlodipine Besylate (Norvasc) 5 mg DAILY PO Last administered on 12/11/20 08:59; Start 12/10/20 at 09:00 Ondansetron HCl (Zofran Odt) 4 mg PRN Q6HRS PRN PO NAUSEA/VOMITING Last administered on 12/11/20 08:02; Start 12/10/20 at 20:30 Levothyroxine Sodium (Synthroid) 25 mcg DAILY06 PO Last administered on 12/11/20 11:18; Start 12/11/20 at 11:00 Active Scripts Active Metformin Hcl 500 Mg Tablet 500 Mg PO BIDWMEALS 30 Days Metoprolol Succinate ( Xl ) (Metoprolol Succinate) 25 Mg Tab.er.24h 25 Mg PO DAILY 30 Days Pyridoxine Hcl (Pyridoxine Hcl) 25 Mg Tablet 1 Tab PO DAILY 30 Days B-12 (Cyanocobalamin (Vitamin B-12)) 2,500 Mcg Tab.subl 1 Tab SL DAILY 30 Days Folic Acid 0.4 Mg Tablet 0.4 Mg PO DAILY 30 Days Atorvastatin Calcium 20 Mg Tablet 20 Mg PO QHS 30 Days Reported Multi Vitamin Daily (Multivitamin) 1 Each Tablet 1 Tab PO DAILY 30 Days B-12 (Cyanocobalamin (Vitamin B-12)) 1,000 Mcg Tablet.er 1 Tab PO DAILY 30 Days Vitamin D3 (Vitamin D) 25 Mcg Tablet 25 Mcg PO DAILY 1,000 UNITS = 25 MCG Zoloft (Sertraline Hcl) 25 Mg Tablet 1 Tab PO BID Olanzapine 5 Mg Tablet 5 Mg PO DAILY Aspirin 81 Mg Tab.chew 81 Mg PO DAILY Norvasc (Amlodipine Besylate) 5 Mg Tablet 5 Mg PO DAILY Lisinopril 10 Mg Tablet 10 Mg PO DAILY Vitals/I & O Vital Sign - Last 24 Hours 12/10/20 12/10/20 12/10/20 12/10/20 15:00 19:50 20:10 23:31 Temp 98.1 97.6 97.7 98.1 97.6 97.7 Pulse 70 64 56 Resp 20 17 18 B/P (MAP) 130/68 (88) 145/69 (94) 132/60 (84) Pulse Ox 95 96 95 O2 Delivery Room Air Room Air Room Air Room Air 12/11/20 12/11/20 12/11/20 12/11/20 03:50 07:00 08:58 08:59 Temp 97.1 98.2 97.1 98.2 Pulse 62 57 57 57 Resp 18 20 B/P (MAP) 137/69 (91) 149/74 (99) 149/74 149/74 Pulse Ox 96 94 O2 Delivery Room Air Room Air Intake and Output 12/10/20 12/10/20 12/11/20 15:00 23:00 07:00 Intake Total 540 ml 240 ml Output Total 400 ml 1150 ml Balance 140 ml 240 ml -1150 ml Justifications for Admission Other Justification MARCELINO SALAS MD Dec 11, 2020 12:54
--- NOTE | 2020-12-11 13:33 | PDOC ---
[facility] [facility] PROGRESS NOTE Date of Service DOS: DATE: 12/11/20 TIME: 13:31 Chief Complaint Chief Complaint Nausea Vomiting Diarrhea Generalized weakness Stroke HTN HLD Probable drug abuse Mental health issues History of Present Illness History of Present Illness 12/11/2020 Patient seen and examined. Discussed with RN Chart reviewed. His TSH is high at 7 we will start low-dose Synthroid Discussed with pharmacy 12/10/2020: Pt seen and examined. Discussed with RN. Chart reviewed. Pt A&O, NAD. Vitals/I&O Vitals/I&O: Vital Signs Date Time Temp Pulse Resp B/P (MAP) Pulse Ox O2 Delivery O2 Flow Rate FiO2 12/11/20 08:59 57 149/74 12/11/20 07:00 98.2 20 94 Room Air 98.2 I & O 12/10/20 12/10/20 12/11/20 15:00 23:00 07:00 Intake Total 540 ml 240 ml Output Total 400 ml 1150 ml Balance 140 ml 240 ml -1150 ml Physical Exam General: No acute distress Heart: Regular rate Lungs: Clear Abdomen: Normal bowel sounds Labs Labs: Laboratory Tests Test 12/11/20 07:10 White Blood Count 6.4 x10^3/uL (4.0-11.0) Red Blood Count 4.43 x10^6/uL (4.30-5.70) Hemoglobin 13.3 g/dL (13.0-17.5) Hematocrit 37.6 % (39.0-53.0) Mean Corpuscular Volume 85 fL (79-100) Mean Corpuscular Hemoglobin 30 pg (25-35) Mean Corpuscular Hemoglobin Concent 35 g/dL (31-37) Red Cell Distribution Width 14.5 % (11.5-14.5) Platelet Count 209 x10^3/uL (140-400) Neutrophils (%) (Auto) 66 % (31-73) Lymphocytes (%) (Auto) 24 % (24-48) Monocytes (%) (Auto) 9 % (0-9) Eosinophils (%) (Auto) 0 % (0-3) Basophils (%) (Auto) 1 % (0-3) Neutrophils # (Auto) 4.2 x10^3/uL (1.8-7.7) Lymphocytes # (Auto) 1.6 x10^3/uL (1.0-4.8) Monocytes # (Auto) 0.6 x10^3/uL (0.0-1.1) Eosinophils # (Auto) 0.0 x10^3/uL (0.0-0.7) Basophils # (Auto) 0.1 x10^3/uL (0.0-0.2) Sodium Level 140 mmol/L (136-145) Potassium Level 3.4 mmol/L (3.5-5.1) Chloride Level 105 mmol/L (98-107) Carbon Dioxide Level 28 mmol/L (21-32) Anion Gap 7 (6-14) Blood Urea Nitrogen 7 mg/dL (8-26) Creatinine 0.7 mg/dL (0.7-1.3) Estimated GFR (Cockcroft-Gault) 111.5 Glucose Level 123 mg/dL (70-99) Calcium Level 8.5 mg/dL (8.5-10.1) Triglycerides Level 106 mg/dL (0-150) Cholesterol Level 179 mg/dL (0-200) LDL Cholesterol, Calculated 127 mg/dL (0-100) VLDL Cholesterol, Calculated 21 mg/dL (0-40) Non-HDL Cholesterol Calculated 148 mg/dL (0-129) HDL Cholesterol 31 mg/dL (40-60) Cholesterol/HDL Ratio 5.8 Thyroid Stimulating Hormone (TSH) 7.525 uIU/mL (0.358-3.74) Assessment and Plan Assessmemt and Plan Problems Medical Problems: (1) Fall Status: Acute (2) Generalized weakness Status: Acut New hypothyroidism Nausea Vomiting Diarrhea Generalized weakness Stroke HTN HLD Probable drug abuse Mental health issues Plan: Add Synthroid Cardiac monitoring IV fluids Await perinatal social worker input for possible SNU placement PT OT DVT prophylaxis Appreciate subspecialist input Trend labs Full code Discharge disposition pending Comment Review of Relevant I have reviewed the following items russell (where applicable) has been applied. Medications: Current Medications Medications (Trade) Dose Ordered Sig/Keely Route PRN Reason Start Time Stop Time Status Last Admin Dose Admin Atorvastatin Calcium (Lipitor) 20 mg QHS PO 12/10/20 21:00 12/10/20 21:20 Ondansetron HCl (Zofran Odt) 4 mg PRN Q6HRS PRN PO NAUSEA/VOMITING 9/25/21 20:30 12/11/20 08:02 Levothyroxine Sodium (Synthroid) 25 mcg DAILY06 PO 12/11/20 11:00 12/11/20 11:18 Justifications for Admission Other Justification KHANH BONILLA III DO Dec 11, 2020 13:33
[2020-12-11 15:00] VITALS: BP 152/66
[2020-12-11] MEDS: POTASSIUM CHLORIDE 20 MEQ TABLET.ER. PO SCH (15:21)
[2020-12-11 19:00] VITALS: BP 136/70
[2020-12-11] MEDS: ATORVASTATIN CALCIUM 20 MG TABLET PO SCH (20:04)
[2020-12-11 22:45] VITALS: BP 140/70
[2020-12-12 02:49] VITALS: BP 140/76
[2020-12-12] MEDS: LEVOTHYROXINE 25 MCG TABLET. PO SCH (05:02)
[2020-12-12 07:15] VITALS: BP 157/81
[2020-12-12 07:23] LABS: BASO # 0.1 x10^3/uL (0.0-0.2); BASO % 1 % (0-3); EOS % 0 % (0-3); HEMATOCRIT 38.3 % (39.0-53.0); HEMOGLOBIN 13.3 g/dL (13.0-17.5); LYMPH # 1.8 x10^3/uL (1.0-4.8); LYMPH % 27 % (24-48); MEAN CORPUSCULAR HEMOGLOBIN 30 pg (25-35); MEAN CORPUSCULAR HGB CONC 35 g/dL (31-37); MEAN CORPUSCULAR VOLUME 85 fL (79-100); MONO # 0.6 x10^3/uL (0.0-1.1); MONO % 9 % (0-9); NEUT # 4.2 x10^3/uL (1.8-7.7); NEUT % 63 % (31-73); PLATELET COUNT 228 x10^3/uL (140-400); RED BLOOD COUNT 4.52 x10^6/uL (4.30-5.70); RED CELL DISTRIBUTION WIDTH 14.5 % (11.5-14.5); WHITE BLOOD COUNT 6.7 x10^3/uL (4.0-11.0)
[2020-12-12] MEDS: POTASSIUM CHLORIDE 20 MEQ TABLET.ER. PO SCH (07:31)
[2020-12-12 07:49] LABS: CALCIUM 8.7 mg/dL (8.5-10.1); CREATININE 0.8 mg/dL (0.7-1.3); GFR 95.6; POTASSIUM 3.6 mmol/L (3.5-5.1)
--- NOTE | 2020-12-12 09:43 | PDOC ---
[facility] [facility] PROGRESS NOTE Date of Service DOS: DATE: 12/12/20 TIME: 09:40 Chief Complaint Chief Complaint Nausea Vomiting Diarrhea Generalized weakness Stroke HTN HLD Probable drug abuse Mental health issues H/o psychogenic nonepileptic seizure. He has refused anticonvulsants in the past. Leukocytosis - likely reactive due to mild rhabdomyolysis. hydrated and resolved, no clear infection Cannabinoid use - counseled on backing off use Elevated troponins concerning for type II demand ischemia, more likely rhabdo HLD - statin HTN - cont home meds H/o CVA - with left sided deficits. 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 He has poor compliance and no showed on his cardiology appointment to which outpt stress test was being planned. Cardiology added low dose toprol 37 MIN PT exam, chart review, > 50% of time spent with exam, chart review, pt care coordination. History of Present Illness History of Present Illness Mr Isidro is a 70-year-old male with PMHx HLD, HTN, CVA who presented to the ER with mental status change. He was found down by neighbors. was recently discharged to SNF on 08/22/2020 He is confused. Does have baseline left-sided weakness. Not worsened prior examination. He has no complaints. His DPOA was contacted by ED noted that he has been taking psilocybin mushrooms and marijuana at home and not taking his medications. Presents for evaluation of nausea vomiting diarrhea and generalized weakness. Patient states 1 day history of nausea vomiting and diarrhea. Earlier this morning patient fell to the ground but due to weakness he could not get himself up off the ground. Patient denies any head injury. Neighbors called 911 at 2 AM due to hearing someone yelling out calling for help. EMS states it took them approximately an hour and a half to locate the patient. He denies any chest pain or shortness of breath. 12/10: Pt seen and examined. Discussed with RN. Chart reviewed. Pt A&O, NAD. 12/11: Chart reviewed. His TSH is high at 7 we will start low-dose Synthroid Still feels weak. Labs stable. He is asking if he can have a prescription for hemp nasal spray. No CP or SOB. Vitals/I&O Vitals/I&O: Vital Signs Date Time Temp Pulse Resp B/P (MAP) Pulse Ox O2 Delivery O2 Flow Rate FiO2 12/12/20 07:15 98.2 56 20 157/81 (106) 98 Room Air 98.2 I & O 12/11/20 12/11/20 12/12/20 15:00 23:00 07:00 Intake Total 100 ml Output Total 400 ml 750 ml 1200 ml Balance -300 ml -750 ml -1200 ml Physical Exam General: No acute distress Heart: Regular rate Lungs: Clear Abdomen: Normal bowel sounds Labs Labs: Laboratory Tests Test 12/12/20 06:45 White Blood Count 6.7 x10^3/uL (4.0-11.0) Red Blood Count 4.52 x10^6/uL (4.30-5.70) Hemoglobin 13.3 g/dL (13.0-17.5) Hematocrit 38.3 % (39.0-53.0) Mean Corpuscular Volume 85 fL (79-100) Mean Corpuscular Hemoglobin 30 pg (25-35) Mean Corpuscular Hemoglobin Concent 35 g/dL (31-37) Red Cell Distribution Width 14.5 % (11.5-14.5) Platelet Count 228 x10^3/uL (140-400) Neutrophils (%) (Auto) 63 % (31-73) Lymphocytes (%) (Auto) 27 % (24-48) Monocytes (%) (Auto) 9 % (0-9) Eosinophils (%) (Auto) 0 % (0-3) Basophils (%) (Auto) 1 % (0-3) Neutrophils # (Auto) 4.2 x10^3/uL (1.8-7.7) Lymphocytes # (Auto) 1.8 x10^3/uL (1.0-4.8) Monocytes # (Auto) 0.6 x10^3/uL (0.0-1.1) Eosinophils # (Auto) 0.0 x10^3/uL (0.0-0.7) Basophils # (Auto) 0.1 x10^3/uL (0.0-0.2) Sodium Level 142 mmol/L (136-145) Potassium Level 3.6 mmol/L (3.5-5.1) Chloride Level 105 mmol/L (98-107) Carbon Dioxide Level 29 mmol/L (21-32) Anion Gap 8 (6-14) Blood Urea Nitrogen 6 mg/dL (8-26) Creatinine 0.8 mg/dL (0.7-1.3) Estimated GFR (Cockcroft-Gault) 95.6 Glucose Level 110 mg/dL (70-99) Calcium Level 8.7 mg/dL (8.5-10.1) Assessment and Plan Assessmemt and Plan Problems Medical Problems: (1) Fall Status: Acute (2) Generalized weakness Status: Acute Comment Review of Relevant I have reviewed the following items russell (where applicable) has been applied. Medications: Current Medications Medications (Trade) Dose Ordered Sig/Keely Route PRN Reason Start Time Stop Time Status Last Admin Dose Admin Levothyroxine Sodium (Synthroid) 25 mcg DAILY06 PO 12/11/20 11:00 12/12/20 05:02 Potassium Chloride (Klor-Con) 20 meq [id number] PO 12/11/20 13:00 12/12/20 07:31 Justifications for Admission Other Justification CHANDANA FARLEY MD Dec 12, 2020 09:42
[2020-12-12] MEDS: CYANOCOBALAMIN (VITAMIN B-12) 1,000 MCG TABLET. PO SCH (09:57)
[2020-12-12] MEDS: CHOLECALCIFEROL (VITAMIN D3) 1,000 UNIT TABLET PO SCH (09:57)
[2020-12-12] MEDS: ASPIRIN CHEWABLE 81 MG TABLET. PO SCH (09:57)
[2020-12-12] MEDS: PYRIDOXINE 50 MG TABLET. PO SCH (09:58)
[2020-12-12] MEDS: SERTRALINE 25 MG TABLET. PO SCH (09:58)
[2020-12-12] MEDS: FOLIC ACID 1 MG TABLET. PO SCH (09:58)
[2020-12-12] MEDS: MULTIVITAMIN with MINERAL TABLET. PO SCH (09:59)
[2020-12-12] MEDS: LISINOPRIL 10 MG TABLET PO SCH (09:59)
[2020-12-12 11:00] VITALS: BP 155/76
[2020-12-12] MEDS ORDERED: LEVO25TA4 PO (11:34)
--- NOTE | 2020-12-12 11:36 | SNU/HH DC ---
DISCHARGE WITH HOME HEALTH DISCHARGE INFORMATION: Discharge Date: Dec 12, 2020 Final Diagnosis: Problems Medical Problems: (1) Fall Status: Acute (2) Generalized weakness Status: Acute Condition on Discharge: Stable CODE STATUS: Code Status: Full HOME HEALTH: Face to Face: I certify this patient is under my care and that I, or a nurse practitioner or physician's manufacturing assistant working with me, had a face to face encounter that meets the physician face to face encounter requirements with this patient on 12/12/2020. Medical Complications: CVA, DM, Falls, HTN Longterm For: Assess & Educate Safety, Assess/Skilled Observatio, Medication Management RN For Eval/Treatment: Yes Physical Therapy For: Evalulation/Treatment Occupational Therapy For: Evaluation/Treatment Pt Meets Homebound Status: Fatigue w/ amb. POST DISCHARGE ORDERS: Activity Instructions for Disc: Activity as tolerated Weight Bearing Status after Di: As tolerated DIET AFTER DISCHARGE: Cardiac Wound/Incision Care: No wound care needed CHECKS AFTER DISCHARGE: Checks after discharge: Check blood press - daily, Check your Temp as needed FOLLOW-UP: Additional Instructions: Call to follow up with cardiology [address] [facility], [address] [place] [address] TREATMENT/EQUIPMENT ORDERS: Adaptive Equipment Issued: Raised toilet seat w/arms Discharge Respiratory Equipmen: Nebulizer CERTIFICATION STATEMENT: Certification Statement: Certification Statement: Based on the above finding, I certify that this patient is confined to the home and needs intermittent fpc care, physical therapy and/or speech therapy, or continues to need occupational therapy.~ This patient is under my care, and I have initiated the establishment of the plan of care.~ This patient will be followed by myself or a community physician who will periodically review the plan of care. Home Meds Active Scripts Levothyroxine Sodium (LEVOTHYROXINE SODIUM) 25 Mcg Tablet, 25 MCG PO DAILY06 for Hypothyroidism for 30 Days, #30 TAB 5 Refills Prov:CHANDANA FARLEY MD 12/12/20 Metformin Hcl (METFORMIN HCL) 500 Mg Tablet, 500 MG PO BIDWMEALS for Prediabetes for 30 Days, #60 TAB 2 Refills Prov:CHANDANA FARLEY MD 10/21/20 Metoprolol Succinate (METOPROLOL SUCCINATE ( XL )) 25 Mg Tab.er.24h, 25 MG PO DAILY for CHF for 30 Days, #30 TAB.SR 5 Refills Prov:CHANDANA FARLEY MD 10/21/20 Pyridoxine Hcl (PYRIDOXINE HCL ) 25 Mg Tablet, 1 TAB PO DAILY for Neuropathy f or 30 Days, #30 TAB 0 Refills Prov:CHANDANA FARLEY MD 08/22/20 Cyanocobalamin (Vitamin B-12) (B-12) 2,500 Mcg Tab.subl, 1 TAB SL DAILY for Low B12 for 30 Days, #30 TAB 0 Refills Prov:CHANDANA FARLEY MD 08/22/20 Folic Acid (FOLIC ACID) 0.4 Mg Tablet, 0.4 MG PO DAILY for SUPPLEMENT for 30 Days, #30 TAB Prov:CHANDANA FARLEY MD 08/22/20 Atorvastatin Calcium (ATORVASTATIN CALCIUM) 20 Mg Tablet, 20 MG PO QHS for HLD for 30 Days, #30 TAB 2 Refills Prov:CHANDANA FARLEY MD 08/22/20 Reported Medications Multivitamin (MULTI VITAMIN DAILY) 1 Each Tablet, 1 TAB PO DAILY for supplement for 30 Days, #30 TAB 0 Refills 10/19/20 Cyanocobalamin (Vitamin B-12) (B-12) 1,000 Mcg Tablet.er, 1 TAB PO DAILY for supplement for 30 Days, #30 TAB 0 Refills 10/19/20 Cholecalciferol (Vitamin D3) (Vitamin D3 ) 25 Mcg Tablet, 25 MCG PO DAILY for SUPPLEMENT, TAB 1,000 UNITS = 25 MCG 10/19/20 Sertraline Hcl (ZOLOFT) 25 Mg Tablet, 1 TAB PO BID for depression, #30 TAB 2 Refills 10/19/20 Olanzapine (OLANZAPINE) 5 Mg Tablet, 5 MG PO DAILY for anxiety, TAB 10/19/20 Aspirin (ASPIRIN) 81 Mg Tab.chew, 81 MG PO DAILY for blood thinner, TAB.CHEW 08/17/20 Amlodipine Besylate (NORVASC) 5 Mg Tablet, 5 MG PO DAILY for hypertension, TAB 08/17/20 Lisinopril (LISINOPRIL) 10 Mg Tablet, 10 MG PO DAILY for FOR HYPERTENSION, #30 TAB 0 Refills 08/17/20 CHANDANA FARLEY MD Dec 12, 2020 11:36
--- NOTE | 2020-12-12 11:38 | PDOC3 ---
Discharge Summary Visit Information Date of Admission: Dec 09, 2020 Date of Discharge: Dec 12, 2020 Admitting Diagnosis: Fall Final Diagnosis Problems Medical Problems: (1) Fall Status: Acute (2) Generalized weakness Status: Acute Brief Hospital Course Allergies Allergies Coded Allergies Type Severity Reaction Last Updated Verified No Known Drug Allergies 08/16/20 No Vital Signs Vital Signs Date Time Temp Pulse Resp B/P (MAP) Pulse Ox O2 Delivery O2 Flow Rate FiO2 12/12/20 11:00 98.4 61 20 155/76 (102) 97 Room Air 98.4 Lab Results Laboratory Tests Test 12/11/20 07:10 12/12/20 06:45 White Blood Count 6.4 x10^3/uL (4.0-11.0) 6.7 x10^3/uL (4.0-11.0) Red Blood Count 4.43 x10^6/uL (4.30-5.70) 4.52 x10^6/uL (4.30-5.70) Hemoglobin 13.3 g/dL (13.0-17.5) 13.3 g/dL (13.0-17.5) Hematocrit 37.6 % (39.0-53.0) 38.3 % (39.0-53.0) Mean Corpuscular Volume 85 fL (79-100) 85 fL (79-100) Mean Corpuscular Hemoglobin 30 pg (25-35) 30 pg (25-35) Mean Corpuscular Hemoglobin Concent 35 g/dL (31-37) 35 g/dL (31-37) Red Cell Distribution Width 14.5 % (11.5-14.5) 14.5 % (11.5-14.5) Platelet Count 209 x10^3/uL (140-400) 228 x10^3/uL (140-400) Neutrophils (%) (Auto) 66 % (31-73) 63 % (31-73) Lymphocytes (%) (Auto) 24 % (24-48) 27 % (24-48) Monocytes (%) (Auto) 9 % (0-9) 9 % (0-9) Eosinophils (%) (Auto) 0 % (0-3) 0 % (0-3) Basophils (%) (Auto) 1 % (0-3) 1 % (0-3) Neutrophils # (Auto) 4.2 x10^3/uL (1.8-7.7) 4.2 x10^3/uL (1.8-7.7) Lymphocytes # (Auto) 1.6 x10^3/uL (1.0-4.8) 1.8 x10^3/uL (1.0-4.8) Monocytes # (Auto) 0.6 x10^3/uL (0.0-1.1) 0.6 x10^3/uL (0.0-1.1) Eosinophils # (Auto) 0.0 x10^3/uL (0.0-0.7) 0.0 x10^3/uL (0.0-0.7) Basophils # (Auto) 0.1 x10^3/uL (0.0-0.2) 0.1 x10^3/uL (0.0-0.2) Sodium Level 140 mmol/L (136-145) 142 mmol/L (136-145) Potassium Level 3.4 mmol/L (3.5-5.1) 3.6 mmol/L (3.5-5.1) Chloride Level 105 mmol/L (98-107) 105 mmol/L (98-107) Carbon Dioxide Level 28 mmol/L (21-32) 29 mmol/L (21-32) Anion Gap 7 (6-14) 8 (6-14) Blood Urea Nitrogen 7 mg/dL (8-26) 6 mg/dL (8-26) Creatinine 0.7 mg/dL (0.7-1.3) 0.8 mg/dL (0.7-1.3) Estimated GFR (Cockcroft-Gault) 111.5 95.6 Glucose Level 123 mg/dL (70-99) 110 mg/dL (70-99) Calcium Level 8.5 mg/dL (8.5-10.1) 8.7 mg/dL (8.5-10.1) Triglycerides Level 106 mg/dL (0-150) Cholesterol Level 179 mg/dL (0-200) LDL Cholesterol, Calculated 127 mg/dL (0-100) VLDL Cholesterol, Calculated 21 mg/dL (0-40) Non-HDL Cholesterol Calculated 148 mg/dL (0-129) HDL Cholesterol 31 mg/dL (40-60) Cholesterol/HDL Ratio 5.8 Thyroid Stimulating Hormone (TSH) 7.525 uIU/mL (0.358-3.74) Laboratory Tests Test 12/12/20 06:45 White Blood Count 6.7 x10^3/uL (4.0-11.0) Red Blood Count 4.52 x10^6/uL (4.30-5.70) Hemoglobin 13.3 g/dL (13.0-17.5) Hematocrit 38.3 % (39.0-53.0) Mean Corpuscular Volume 85 fL (79-100) Mean Corpuscular Hemoglobin 30 pg (25-35) Mean Corpuscular Hemoglobin Concent 35 g/dL (31-37) Red Cell Distribution Width 14.5 % (11.5-14.5) Platelet Count 228 x10^3/uL (140-400) Neutrophils (%) (Auto) 63 % (31-73) Lymphocytes (%) (Auto) 27 % (24-48) Monocytes (%) (Auto) 9 % (0-9) Eosinophils (%) (Auto) 0 % (0-3) Basophils (%) (Auto) 1 % (0-3) Neutrophils # (Auto) 4.2 x10^3/uL (1.8-7.7) Lymphocytes # (Auto) 1.8 x10^3/uL (1.0-4.8) Monocytes # (Auto) 0.6 x10^3/uL (0.0-1.1) Eosinophils # (Auto) 0.0 x10^3/uL (0.0-0.7) Basophils # (Auto) 0.1 x10^3/uL (0.0-0.2) Sodium Level 142 mmol/L (136-145) Potassium Level 3.6 mmol/L (3.5-5.1) Chloride Level 105 mmol/L (98-107) Carbon Dioxide Level 29 mmol/L (21-32) Anion Gap 8 (6-14) Blood Urea Nitrogen 6 mg/dL (8-26) Creatinine 0.8 mg/dL (0.7-1.3) Estimated GFR (Cockcroft-Gault) 95.6 Glucose Level 110 mg/dL (70-99) Calcium Level 8.7 mg/dL (8.5-10.1) Brief Hospital Course Mr Isidro is a 70-year-old male with PMHx HLD, HTN, CVA who presented to the ER with mental status change. He was found down by neighbors. was recently discharged to SNF on 08/22/2020 He is confused. Does have baseline left-sided weakness. Not worsened prior examination. He has no complaints. His DPOA was contacted by ED noted that he has been taking psilocybin mushrooms and marijuana at home and not taking his medications. Presents for evaluation of nausea vomiting diarrhea and generalized weakness. Patient states 1 day history of nausea vomiting and diarrhea. Earlier this morning patient fell to the ground but due to weakness he could not get himself up off the ground. Patient denies any head injury. Neighbors called 911 at 2 AM due to hearing someone yelling out calling for help. EMS states it took them approximately an hour and a half to locate the patient. He denies any chest pain or shortness of breath. 12/10: Pt seen and examined. Discussed with RN. Chart reviewed. Pt A&O, NAD. 12/11: Chart reviewed. His TSH is high at 7 we will start low-dose Synthroid Still feels weak. Labs stable. He is asking if he can have a prescription for hemp nasal spray. No CP or SOB. Discussed with therapy is able to walk 200 feet today prefers to go home with home health and [facility]. Also plan to follow-up with cardiology outpatient Consults: Cardiology Problem list: Nausea Vomiting Diarrhea Generalized weakness Stroke HTN HLD Probable drug abuse Mental health issues H/o psychogenic nonepileptic seizure. He has refused anticonvulsants in the past. Leukocytosis - likely reactive due to mild rhabdomyolysis. hydrated and resolved, no clear infection Cannabinoid use - counseled on backing off use Elevated troponins concerning for type II demand ischemia, more likely rhabdo HLD - statin HTN - cont home meds H/o CVA - with left sided deficits. 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 He has poor compliance and no showed on his cardiology appointment to which outpt stress test was being planned. Cardiology added low dose toprol Greater than 30 minutes spent on d/c home with home health Discharge Information Condition at Discharge: Improved Follow Up: Weeks Disposition/Orders: D/C to Home w/ HH Scheduled Amlodipine Besylate (Norvasc) 5 Mg Tablet, 5 MG PO DAILY for hypertension, (Reported) Entered as Reported by: PENNY MILLS on 08/17/20354 Last Action: Continued on 12/10/20842 by MANJINDER VELARDE Aspirin (Aspirin) 81 Mg Tab.chew, 81 MG PO DAILY for blood thinner, (Reported) Entered as Reported by: PENNY MILLS on 08/17/20354 Last Action: Continued on 12/10/20842 by MANJINDER VELARDE Atorvastatin Calcium (Atorvastatin Calcium) 20 Mg Tablet, 20 MG PO QHS for HLD for 30 Days, #30 Ref 2 Prescribed by: CHANDANA FARLEY MD on 08/22/201024 Last Action: Continued on 12/10/20842 by MANJINDER VELARDE Cholecalciferol (Vitamin D3) (Vitamin D3 ) 25 Mcg Tablet, 25 MCG PO DAILY for SUPPLEMENT, (Reported) 1,000 UNITS = 25 MCG Entered as Reported by: Sincere Rascon on 10/19/2040 Last Action: Continued on 12/10/20842 by MANJINDER VELARDE Cyanocobalamin (Vitamin B-12) (B-12) 2,500 Mcg Tab.subl, 1 TAB SL DAILY for Low B12 for 30 Days, #30 Ref 0 Prescribed by: CHANDANA FARLEY MD on 08/22/201026 Cyanocobalamin (Vitamin B-12) (B-12) 1,000 Mcg Tablet.er, 1 TAB PO DAILY for supplement for 30 Days, #30 Ref 0 (Reported) Entered as Reported by: Sincere Rascon on 10/19/2040 Last Action: Converted on 12/10/20842 by MANJINDER VELARDE Folic Acid (Folic Acid) 0.4 Mg Tablet, 0.4 MG PO DAILY for SUPPLEMENT for 30 Days, #30 Prescribed by: CHANDANA FARLEY MD on 08/22/201026 Last Action: Converted on 12/10/20842 by MANJINDER VELARDE Levothyroxine Sodium (Levothyroxine Sodium) 25 Mcg Tablet, 25 MCG PO DAILY06 for Hypothyroidism for 30 Days, #30 Ref 5 Prescribed by: CHANDANA FARLEY MD on 12/12/20 1134 Lisinopril (Lisinopril) 10 Mg Tablet, 10 MG PO DAILY for FOR HYPERTENSION, #30 Ref 0 (Reported) Entered as Reported by: PENNY MILLS on 08/17/20 0355 Last Action: Continued on 12/10/20842 by MANJINDER VELARDE Metformin Hcl (Metformin Hcl) 500 Mg Tablet, 500 MG PO BIDWMEALS for Prediabetes for 30 Days, #60 Ref 2 Prescribed by: CHANDANA FARLEY MD on 10/21/20 1424 Metoprolol Succinate (Metoprolol Succinate ( Xl )) 25 Mg Tab.er.24h, 25 MG PO DAILY for CHF for 30 Days, #30 Ref 5 Prescribed by: CHANDANA FARLEY MD on 10/21/20 1424 Multivitamin (Multi Vitamin Daily) 1 Each Tablet, 1 TAB PO DAILY for supplement for 30 Days, #30 Ref 0 (Reported) Entered as Reported by: Sincere Rascon on 10/19/2040 Last Action: Converted on 12/10/20842 by MANJINDER VELARDE Olanzapine (Olanzapine) 5 Mg Tablet, 5 MG PO DAILY for anxiety, (Reported) Entered as Reported by: Sincere Rascon on 10/19/2040 Pyridoxine Hcl (Pyridoxine Hcl ) 25 Mg Tablet, 1 TAB PO DAILY for Neuropathy for 30 Days, #30 Ref 0 Prescribed by: CHANDANA FARLEY MD on 08/22/20 1027 Last Action: Continued on 12/10/20842 by MANJINDER VELARDE Sertraline Hcl (Zoloft) 25 Mg Tablet, 1 TAB PO BID for depression, #30 Ref 2 (Reported) Entered as Reported by: Sincere Rascon on 10/19/2040 Last Action: Continued on 12/10/20842 by MANJINDER VELARDE Justicifation of Admission Dx: Justifications for Admission: Justification of Admission Dx: Yes CHANDANA FARLEY MD Dec 12, 2020 11:38
--- NOTE | 2020-12-12 12:21 | PDOC ---
CARDIO Progress Notes Date and Time Date of Service 12/12/20 Time of Evaluation 1220 Subjective Subjective: No Chest Pain, No shortness of breath, No Palpitations Vitals Vitals Vital Signs Date Time Temp Pulse Resp B/P (MAP) Pulse Ox O2 Delivery O2 Flow Rate FiO2 12/12/20 11:00 98.4 61 20 155/76 (102) 97 Room Air 98.4 Weight Weight [ ] Input and Output Intake and Output Intake and Output 12/12/20 07:00 Intake Total 100 ml Output Total 2350 ml Balance -2250 ml Intake Oral 100 ml Output Urine Total 2350 ml Laboratory Labs Laboratory Tests Test 12/12/20 06:45 White Blood Count 6.7 x10^3/uL (4.0-11.0) Red Blood Count 4.52 x10^6/uL (4.30-5.70) Hemoglobin 13.3 g/dL (13.0-17.5) Hematocrit 38.3 % (39.0-53.0) Mean Corpuscular Volume 85 fL (79-100) Mean Corpuscular Hemoglobin 30 pg (25-35) Mean Corpuscular Hemoglobin Concent 35 g/dL (31-37) Red Cell Distribution Width 14.5 % (11.5-14.5) Platelet Count 228 x10^3/uL (140-400) Neutrophils (%) (Auto) 63 % (31-73) Lymphocytes (%) (Auto) 27 % (24-48) Monocytes (%) (Auto) 9 % (0-9) Eosinophils (%) (Auto) 0 % (0-3) Basophils (%) (Auto) 1 % (0-3) Neutrophils # (Auto) 4.2 x10^3/uL (1.8-7.7) Lymphocytes # (Auto) 1.8 x10^3/uL (1.0-4.8) Monocytes # (Auto) 0.6 x10^3/uL (0.0-1.1) Eosinophils # (Auto) 0.0 x10^3/uL (0.0-0.7) Basophils # (Auto) 0.1 x10^3/uL (0.0-0.2) Sodium Level 142 mmol/L (136-145) Potassium Level 3.6 mmol/L (3.5-5.1) Chloride Level 105 mmol/L (98-107) Carbon Dioxide Level 29 mmol/L (21-32) Anion Gap 8 (6-14) Blood Urea Nitrogen 6 mg/dL (8-26) Creatinine 0.8 mg/dL (0.7-1.3) Estimated GFR (Cockcroft-Gault) 95.6 Glucose Level 110 mg/dL (70-99) Calcium Level 8.7 mg/dL (8.5-10.1) Physical Exam HEENT: Neck Supple W Full Motion Chest: Symmetric Heart: RRR Abdomen: Soft N/T Extremities: No Edema Neurology: alert, oriented, follow commands Assessment Assessment 1. Nausea and vomiting; improved 2. Mild troponin elevation; highest 0.048. Most probably type II, demand ischemia. EKG without significant acute changes. 3. Hypertension. Continuing present treatment. 4. H/o CVA and psychogenic nonepileptic seizure 5. Marijuana use 6. Hyperlipidemia; LDL 127. Continue statin. 7. Hypothyroidism; TSH 7.525 Recommendations ASA, statin therapy Will arrange outpatient stress test and follow up in our office with Dr. Kinsey Coelloicifation of Admission Dx: Justifications for Admission: Justification of Admission Dx: Yes NIMESH CUELLAR APRN Dec 12, 2020 12:20
[2020-12-12 14:45] VITALS: BP 132/73
== END 2020-12-12 15:30 | disposition home health service (06) | DRG 557 ==
LOC: ER 05:13 → 5 SOUTH 06:02
PROVIDERS: ADMIT Internal Medicine; ATTEND Internal Medicine
DX: M62.82 Rhabdomyolysis (principal); G92 Toxic encephalopathy; E87.2 Acidosis; I24.8 Other forms of acute ischemic heart disease; E11.43 Type 2 diabetes mellitus with diabetic autonomic (poly)neuropathy; D72.829 Elevated white blood cell count, unspecified; E03.9 Hypothyroidism, unspecified; E11.9 Type 2 diabetes mellitus without complications; E78.00 Pure hypercholesterolemia, unspecified; E78.5 Hyperlipidemia, unspecified; F03.90 Unspecified dementia, unspecified severity, without behavioral disturbance, psychotic disturbance, mood disturbance, and anxiety; F12.90 Cannabis use, unspecified, uncomplicated; G40.909 Epilepsy, unspecified, not intractable, without status epilepticus; I10 Essential (primary) hypertension; Z83.3 Family history of diabetes mellitus; M19.90 Unspecified osteoarthritis, unspecified site; W18.39XA Other fall on same level, initial encounter; Y93.89 Activity, other specified; Y92.89 Other specified places as the place of occurrence of the external cause; Y99.8 Other external cause status; I69.398 Other sequelae of cerebral infarction; Z20.822 Contact with and (suspected) exposure to COVID-19; K31.84 Gastroparesis
CPT/HCPCS: 36415; 71045; 80048; 80053; 80061; 80307; 81001; 82550; 83735; 84443; 84484; 85025; 87426; 87804; 93005; 96361; 96374; 96375; G0480; J2405; J7030; U0003; U0005; 97530-GP; 99285-25; G0378